=== PATIENT | female | born 1975 | race Caucasian/White ===

== ENCOUNTER 2022-12-15 20:57 | Emergency (ER) | payer MEDICAID ==
[~2022-12-15] VITALS: Ht 167.6 cm; Wt 63.0 kg
[2022-12-15 21:02] VITALS: BP 142/78; PULSE 80; RESP 16; O2SAT 98
[2022-12-15] MEDS ORDERED: ACETAMINOPHEN 325MG TABLET PO ONE (22:15)
[2022-12-15 22:38] VITALS: TEMP 98.9
== END 2022-12-16 00:13 | disposition home or self-care (01) ==
LOC: ER 20:57
DX: M25.561 Pain in right knee (principal); M25.531 Pain in right wrist
CPT/HCPCS: 73110; 73562; 73590; 99284

== ENCOUNTER 2024-06-18 06:19 | Emergency (ER) | payer MEDICAID, OTHER ==
[~2024-06-18] VITALS: Ht 154.9 cm; Wt 68.0 kg
[2024-06-18 06:21] VITALS: O2SAT 100
[2024-06-18] MEDS: LORAZEPAM 0.5MG TABLET PO ONE (06:55)
[2024-06-18 06:57] LABS: BASOPHILS % 0.8 % (0.0-2.0); EOSINOPHILS % 0.4 % (0.0-5.0); HEMATOCRIT. 38.7 % (36.0-48.0); HEMOGLOBIN. 13.1 g/dL (12.0-16.0); MEAN CORPUSCULAR HEMOGLOBIN 30.3 pg (28.0-32.0); MEAN CORPUSCULAR HGB CONC 33.7 g/dL (31.0-37.0); MEAN CORPUSCULAR VOLUME 89.9 fL (81.0-99.0); MEAN PLATELET VOLUME 9.8 fl (7.4-10.4); MONOCYTES % 4.3 % (2.0-8.0); NEUTROPHILS % 75.5 % (40.0-76.0); PLATELET 289 x1000/uL (130-400); RED CELL DISTRIBUTION WIDTH 13.9 % (11.6-14.6); WHITE BLOOD COUNT 9.5 x1000/uL (4.5-11.0)
[2024-06-18 07:12] LABS: CHLORIDE 103 mEq/L (98-107)
[2024-06-18 07:13] LABS: POTASSIUM 4.1 mEq/L (3.5-5.1); SODIUM 136 mEq/L (136-145)
[2024-06-18 07:14] LABS: CALCIUM 10.3 mg/dL (8.7-10.4); CARBON DIOXIDE 27 mEq/L (21-32)
[2024-06-18 07:19] LABS: CREATININE 0.7 mg/dL (0.6-1.0); GLUCOSE 124 mg/dL (70-105); TROPONIN I HIGH SENSITIVITY 4 ng/L (3.0-34); UREA NITROGEN BLOOD 14 mg/dL (9-23)
[2024-06-18 08:15] VITALS: BP 128/73; PULSE 71; RESP 16; TEMP 36.7; O2SAT 100
== END 2024-06-18 08:32 | disposition home or self-care (01) ==
LOC: ER 06:19
DX: F41.9 Anxiety disorder, unspecified (principal); R07.89 Other chest pain
CPT/HCPCS: 80048; 85025; 84484; 36415; 71045; 93005; 99285; Z7610 ×3; A4606